=== PATIENT | female | born 1960 | race Two or more races ===

== ENCOUNTER 2018-12-07 00:10 | Emergency (ER) | payer OTHER ==
[~2018-12-07] VITALS: Ht 160 cm; Wt 90.7 kg
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
--- NOTE | 2018-12-07 00:20 | Emergency Room Report ---
History of Present Illness General Chief Complaint: Lower Extremity Injury Source: Patient Present Illness HPI Patient presents with complaints of right lower leg pain reports that she was stepping down from the [place] and her leg was stuck between the [employer] and the plank Pain is 8 out of 10 denies any knee pain denies any pelvic pain most of the pain is localized to the mid part of the tibial region Denies any other trauma denies any fall patient was brought in by paramedics Denies any neuropathy in the foot Allergies: Coded Allergies: No Known Allergies (Unverified , 12/07/18) Patient History Past Medical History: see triage record Pertinent Family History: none Reviewed Nursing Documentation: PMH: Agreed; PSxH: Agreed Nursing Documentation-PMH Past Medical History: No Stated History Review of Systems All Other Systems: negative except mentioned in HPI Physical Exam Vital Signs Date Time Temp Pulse Resp B/P (MAP) Pulse Ox O2 Delivery O2 Flow Rate FiO2 12/07/18 00:07 110 16 150/88 (108) 94 Room Air Sp02 EP Interpretation: reviewed, normal General Appearance: mild distress - In acute pain Head: normocephalic, atraumatic Eyes: bilateral eye PERRL, bilateral eye EOMI ENT: hearing grossly normal, normal pharynx Neck: supple Respiratory: lungs clear, no respiratory distress, no retraction Cardiovascular #1: regular rate, rhythm Gastrointestinal: non tender, soft Musculoskeletal: other - Some ecchymosis and bruising to the mid tibial region Neurologic: alert, oriented x3 Medical Decision Making Diagnostic Impression: Primary Impression: Contusion ER Course Given the history exam and presentation imaging studies are obtained no obvious acute pathology is seen Patient feels significantly better and appropriate for close outpatient follow- up Other X-Ray Diagnostic Results Other X-Ray Diagnostic Results : X-Ray ordered: Left tib-fib # of Views/Limited Vs Complete: 2 View Indication: Pain EP Interpretation: Yes Interpretation: no dislocation, no soft tissue swelling, no fractures Impression: No acute disease Electronically Signed by: Liang Lamar DO Last Vital Signs Date Time Temp Pulse Resp B/P (MAP) Pulse Ox O2 Delivery O2 Flow Rate FiO2 12/07/18 00:07 110 16 150/88 (108) 94 Room Air Status: improved Disposition: HOME, SELF-CARE Condition: Improved Scripts Ibuprofen* (MOTRIN*) 600 Mg Tablet 600 MG ORAL Q8H PRN for For Pain, #20 TAB 0 Refills Prov: Liang Lamar DO 12/07/18 Additional Instructions: Patient is provided with the discharge instructions notified to follow up with primary doctor in the next 2-3 days otherwise return to the er with any worsening symptoms. Please note that this report is being documented using DRAGON technology. This can lead to erroneous entry secondary to incorrect interpretation by the dictating instrument. Liang Lamar DO Dec 07, 2018 00:20
[2018-12-07] MEDS ORDERED: Ketorolac 60mg Inj IM ONE (00:30)
--- NOTE | 2018-12-07 00:32 | NUR ---
ED Nurse Note: Pain meds was given .
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
[2018-12-07] MEDS ORDERED: IBUPROFEN600 MG ORAL (01:59)
[2018-12-07 02:09] VITALS: BP 143/84
--- NOTE | 2018-12-07 02:09 | NUR ---
ER DISCHARGE NOTE: Patient is cleared to be discharged per [facility]. X-ray done, no fracture was noted. Pt is aox4 on room air with stable vital signs. Pt was given dc and prescription instructions and was able to verbalize understanding. Pt's band removed. Pt is able to ambulate with steady gait and took all belongings.
== END 2018-12-07 02:09 | disposition home or self-care (01) ==
LOC: EDBD 00:10 → EMR 00:23
DX: S80.12XA Contusion of left lower leg, initial encounter (principal); W23.0XXA Caught, crushed, jammed, or pinched between moving objects, initial encounter; Y92.815 Train as the place of occurrence of the external cause
CPT/HCPCS: 96372; 99283